=== PATIENT | female | born 1995 | race Two or more races ===

== ENCOUNTER 2019-10-25 08:12 | Emergency (ER) | payer MEDICAID ==
[~2019-10-25] VITALS: Ht 165.1 cm; Wt 65.8 kg
[2019-10-25 08:38] VITALS: BP 151/93
[2019-10-25] MEDS ORDERED: LACTULOSE 20Gm/30ML SOLN PO ONE (09:00)
== END 2019-10-25 09:48 | disposition home or self-care (01) ==
LOC: ER 08:12
DX: K59.00 Constipation, unspecified (principal)
CPT/HCPCS: 74018; 81002